=== PATIENT | male | born 1935 | race Caucasian/White ===

== ENCOUNTER → 2016-04-28 | Outpatient (CLI) | payer MEDICARE, BC | END | disposition home or self-care (01) | LOC: GMAL 11:16 | PROVIDERS: ATTEND Family Medicine | DX: D51.3 Other dietary vitamin B12 deficiency anemia (principal); E78.4 Other hyperlipidemia; E55.9 Vitamin D deficiency, unspecified | CPT/HCPCS: 82306; 82607; 84443; 87070; G0103 ==

== ENCOUNTER → 2016-05-04 | Outpatient (CLI) | payer MEDICARE, BC | LOC: GMAL 17:04 | PROVIDERS: ATTEND Family Medicine | DX: S51.012A Laceration without foreign body of left elbow, initial encounter (principal) ==

== ENCOUNTER → 2016-06-03 | Outpatient (CLI) | payer MEDICARE, BC | END | disposition home or self-care (01) | LOC: LAB.O 17:09 | PROVIDERS: ATTEND Internal Medicine Nephrology | DX: N18.3 Chronic kidney disease, stage 3 (moderate) (principal); E11.29 Type 2 diabetes mellitus with other diabetic kidney complication; I50.9 Heart failure, unspecified; E87.8 Other disorders of electrolyte and fluid balance, not elsewhere classified; D63.1 Anemia in chronic kidney disease; D50.9 Iron deficiency anemia, unspecified ==

== ENCOUNTER → 2016-09-24 | Outpatient (CLI) | payer MEDICARE, BC | END | disposition home or self-care (01) | LOC: LAB.O 09:53 | PROVIDERS: ATTEND Internal Medicine Nephrology | DX: N18.3 Chronic kidney disease, stage 3 (moderate) (principal); E11.9 Type 2 diabetes mellitus without complications ==

== ENCOUNTER → 2017-01-17 | Outpatient (CLI) | payer MEDICARE, BC | END | disposition home or self-care (01) | LOC: GMAL 14:12 | PROVIDERS: ATTEND Family Medicine | DX: I50.9 Heart failure, unspecified (principal); N39.0 Urinary tract infection, site not specified ==

== ENCOUNTER → 2017-01-17 | Outpatient (CLI) | payer MEDICARE, BC | END | disposition home or self-care (01) | LOC: GMAL 11:17 | PROVIDERS: ATTEND Family Medicine | DX: D51.3 Other dietary vitamin B12 deficiency anemia (principal); R53.82 Chronic fatigue, unspecified; E55.9 Vitamin D deficiency, unspecified | CPT/HCPCS: 82306; 82607; 83880; 84443; G0103 ==

== ENCOUNTER → 2017-01-19 | Outpatient (CLI) | payer MEDICARE, BC ==
--- NOTE | 2017-01-20 08:57 | US ---
EXAM DESCRIPTION: Abdomen,Limited CLINICAL HISTORY: 81 years, Male, CHRONIC KIDNEY DISEASE COMPARISON: None. FINDINGS: The right kidney measures 11.6 cm in length. There is a questionable tiny nonobstructing calculus inferior pole right kidney. No hydronephrosis. There is no right renal cortical thinning or perinephric fluid. The left kidney measures 11.8cm in length. There is no left-sided hydronephrosis or obstructing nephrolithiasis. There is no left renal cortical thinning or perinephric fluid. The bladder is unremarkable. No bladder wall thickening or mass. Needle ureteral jet was identified during this exam. Prevoid bladder volume 219 mL. The patient was unable to void, and post void bladder volume was not calculated. The prostate is not identified on this exam. The abdominal aorta and IVC are not well visualized on this exam. IMPRESSION: Questionable tiny nonobstructing right renal calculus, but no hydronephrosis, renal mass, bladder wall thickening or other apparent urinary tract abnormality. Patient was unable to void up to 30 minutes following the exam, and post void bladder volume was not calculated. Nonvisualization of the prostate. Electronically signed by: Lg Fink MD 01/20/2017 8:56 AM CDT
== END ==
LOC: US 09:47
PROVIDERS: ATTEND Family Medicine
DX: N18.9 Chronic kidney disease, unspecified (principal); N20.0 Calculus of kidney

== ENCOUNTER → 2017-02-07 | Outpatient (CLI) | payer MEDICARE, BC | END | disposition home or self-care (01) | LOC: LAB.O 09:50 | PROVIDERS: ATTEND Internal Medicine Nephrology | DX: E11.29 Type 2 diabetes mellitus with other diabetic kidney complication (principal); N18.3 Chronic kidney disease, stage 3 (moderate); R79.89 Other specified abnormal findings of blood chemistry; N25.81 Secondary hyperparathyroidism of renal origin; D63.1 Anemia in chronic kidney disease ==

== ENCOUNTER 2017-03-19 18:13 | Emergency (ER) | payer MEDICARE, BC ==
--- NOTE | 2017-03-19 19:15 | ED.PDOC ---
History of Present Illness - General Chief Complaint: Respiratory Problem Stated Complaint: cough,fever Time Seen by Provider: 03/19/17 19:10 Source: patient, RN notes reviewed, Vital Signs reviewed Additional Information: Pt states he thinks he has "a bad cold". Patient good with plan for chest x-ray and swab for flu. Reportedly patient had a fever to 102 recently along with cough and runny nose. Pt in no distress currently. He ambulates with a rolling walker and he denies any recent falls. He lives alone and reports a load builder that comes am and pm. - History of Present Illness Timing/Duration: other - within the past 24 hours Cough Quality/Degree: mild, dry cough Possible Cause: unknown cause Improving Factors: nothing Worsening Factors: nothing Associated Symptoms: cough, fever/chills, nasal congestion, nasal drainage Respiratory Risk Factors: no cause identified Allergies/Adverse Reactions: Allergies NO KNOWN ALLERGY Allergy (Verified 07/23/15 10:42) Home Medications: Ambulatory Orders Allopurinol [Zyloprim] 100 mg PO BID 07/23/15 Aspirin [Aspirin Adult Low Dose] 81 mg PO DAILY 07/23/15 Carvedilol [Coreg] 25 mg PO BID 07/23/15 Dabigatran Etexilate [Pradaxa] 75 mg PO BID 07/23/15 Furosemide [Lasix] 80 mg PO DAILY 07/23/15 Glimepiride [Amaryl] 4 mg PO BID 07/23/15 Pitavastatin Calcium [Livalo] 4 mg PO DAILY 07/23/15 Azithromycin [Zithromax Z-Josiah] 1 ea PO DAILY #1 pack 03/19/17 Oseltamivir Phosphate [Tamiflu] 75 mg PO BID 5 Days #10 cap 03/19/17 Review of Systems - Review of Systems Constitutional: States: see HPI, fever EENTM: States: see HPI, nose congestion Respiratory: States: see HPI, cough Cardiology: States: no symptoms reported Gastrointestinal/Abdominal: States: no symptoms reported Genitourinary: States: no symptoms reported Musculoskeletal: States: no symptoms reported Skin: States: no symptoms reported Neurological: States: no symptoms reported Endocrine: States: no symptoms reported Hematologic/Lymphatic: States: no symptoms reported Past Medical History (General) - Patient Medical History Hx Stroke: Yes Hx Dementia: No Hx Asthma: No Hx of COPD: No Hx Cardiac Disorders: Yes Hx Congestive Heart Failure: Yes Hx Pacemaker: Yes Hx Hypertension: Yes Hx Thyroid Disease: No Hx Diabetes: Yes Hx Cancer: Yes - Skin Hx MRSA: No Surgical History: pacemaker - Vaccination History Hx Tetanus, Diphtheria Vaccination: No - unknown Hx Influenza Vaccination: Yes Hx Pneumococcal Vaccination: Yes - Social History Hx Tobacco Use: No Family Medical History - Family History Father Family History: Unknown Living Status: Physical Exam - Physical Exam General Appearance: Alert, Comfortable, No apparent distress, Well Hydrated Eye Exam: bilateral normal ENT Exam: pharynx normal, nasal drainage - clear Neck: non-tender, full range of motion, supple Respiratory: no respiratory distress, no accessory muscle use Cardiovascular/Chest: regular rate, rhythm Gastrointestinal/Abdominal: soft Extremity: normal range of motion 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 Pt in no distress on exam. Will treat symptoms and ultimately flu and/or PNA based on results of testing. Suspect Patient will be able to be discharged home once work-up complete. 03/19/17 19:57 Flu positive and infiltrate on x-ray. Pt stable for d/c home. Will give first dose and provide Rx for Azithromycin and Tamiflu. - Results/Orders Results/Orders: Chest X-Ray Report: EXAM DESCRIPTION: Chest,2 Views CLINICAL HISTORY: cough, fever COMPARISON: 07/23/2015 FINDINGS: Two views of the chest are submitted. Cardiac silhouette appears stable. Electronic cardiac device and leads are again seen. Prosthetic valves are again seen.. There is consolidation in the posterior left lung. No acute bony abnormality. There is no significant pulmonary vascular engorgement. IMPRESSION: Left lung consolidation. Departure - Departure Clinical Impression: Influenza Pneumonia Qualifiers: Pneumonia type: due to unspecified organism Laterality: left Lung location: unspecified part of lung Qualified Code(s): J18.9 - Pneumonia, unspecified organism Time of Disposition: 20:20 Disposition: Discharge to Home or Self Care Condition: Fair Departure Forms: ED Discharge - Pt. Copy, Patient Portal Self Enrollment Instructions: DI for Pneumonia -- Adult, Influenza Referrals: Yao Ellis III, MD [Primary Care Provider] - 1-5 Days Prescriptions: Azithromycin [Zithromax Z-Josiah] 1 ea PO DAILY #1 pack Oseltamivir Phosphate [Tamiflu] 75 mg PO BID 5 Days #10 cap Home Medications: Ambulatory Orders Allopurinol [Zyloprim] 100 mg PO BID 07/23/15 Aspirin [Aspirin Adult Low Dose] 81 mg PO DAILY 07/23/15 Carvedilol [Coreg] 25 mg PO BID 07/23/15 Dabigatran Etexilate [Pradaxa] 75 mg PO BID 07/23/15 Furosemide [Lasix] 80 mg PO DAILY 07/23/15 Glimepiride [Amaryl] 4 mg PO BID 07/23/15 Pitavastatin Calcium [Livalo] 4 mg PO DAILY 07/23/15 Azithromycin [Zithromax Z-Josiah] 1 ea PO DAILY #1 pack 03/19/17 Oseltamivir Phosphate [Tamiflu] 75 mg PO BID 5 Days #10 cap 03/19/17 Additional Instructions: Take medicine as prescribed. Stay well hydrated. Use Tylenol over the counter 2 tablets every 6 hours as needed for fever/pain. Follow-up with Primary Care Provider if symptoms persist in 3 to 5 days or return to ER sooner if condition worsens.
--- NOTE | 2017-03-19 19:30 | RAD ---
EXAM DESCRIPTION: Chest,2 Views CLINICAL HISTORY: cough, fever COMPARISON: 07/23/2015 FINDINGS: Two views of the chest are submitted. Cardiac silhouette appears stable. Electronic cardiac device and leads are again seen. Prosthetic valves are again seen.. There is consolidation in the posterior left lung. No acute bony abnormality. There is no significant pulmonary vascular engorgement. IMPRESSION: Left lung consolidation. Electronically signed by: Jonny Jordan 03/19/2017 7:29 PM [facility]
[2017-03-19] MEDS ORDERED: AZITHROMYCIN 250 MG TAB PO ONE (19:47)
[2017-03-19] MEDS ORDERED: OSELTAMIVIR 75 MG CAP PO ONE (19:57)
[2017-03-19] MEDS ORDERED: ACETAMINOPHEN 500 MG TAB PO ONE (20:02)
[2017-03-19 20:05] VITALS: BP 137/62; TEMP 100.1; O2SAT 97
== END 2017-03-19 20:18 | disposition home or self-care (01) ==
LOC: ER 18:13
DX: J11.00 Influenza due to unidentified influenza virus with unspecified type of pneumonia (principal); I11.0 Hypertensive heart disease with heart failure; I50.9 Heart failure, unspecified; E11.9 Type 2 diabetes mellitus without complications; Z95.0 Presence of cardiac pacemaker; Z79.82 Long term (current) use of aspirin
CPT/HCPCS: 71020; 87502; Q0144

== ENCOUNTER → 2017-04-28 | Outpatient (CLI) | payer MEDICARE, BC ==
--- NOTE | 2017-04-29 15:19 | RAD ---
EXAM DESCRIPTION: Hand,Right 3 Views CLINICAL HISTORY: PAIN COMPARISON: None Available. TECHNIQUE: AP, LATERAL, AND OBLIQUE FINDINGS: Three views of the right hand demonstrate severe degenerative changes at the base of the thumb and index finger at the CMC joint. An ulnar fiberglass splint is in place with an oblique mildly comminuted fracture of the fifth metacarpal distally. Slight displacement is evident with slight foreshortening. Moderate volar angulation of the distal fragment is noted. Additional fractures of the carpal bones or proximal metacarpals involving the fourth or fifth finger are not apparent. IMPRESSION: 1. A comminuted oblique fracture of the fifth metacarpal shaft distally with foreshortening and some volar angulation. 2. Advanced severe degenerative changes at the base of the thumb and index finger at the CMC joint. Electronically signed by: Declan Vinson MD 04/29/2017 3:18 PM [facility] [place]
== END ==
LOC: RAD 07:50
PROVIDERS: ATTEND Orthopaedic Surgery
DX: S62.326A Displaced fracture of shaft of fifth metacarpal bone, right hand, initial encounter for closed fracture (principal)

== ENCOUNTER → 2017-05-19 | Outpatient (CLI) | payer MEDICARE, BC ==
--- NOTE | 2017-05-19 09:21 | RAD ---
RIGHT HAND HISTORY:2ND METACARPAL BONE FX COMPARISON:None FINDINGS: Three views of hand demonstrate anatomic bony alignment. Comminuted and mildly angulated fracture in the fifth metacarpal without fracture extending to the MCP joint. No other fracture is identified in remainder of right hand. Diffuse narrowing of IP and DIP joints and CMC joints, with partial ankylosis at the fourth IP joint. No soft tissue abnormality is identified. IMPRESSION: Comminuted and mildly angulated fracture in the fifth metacarpal. Degenerative changes consistent with osteoarthritis. There is partial ankylosis across the fourth IP joint Electronically signed by: Juan Morejon MD 05/19/2017 9:21 AM [facility]
== END ==
LOC: RAD 07:50
PROVIDERS: ATTEND Orthopaedic Surgery
DX: S62.300D Unspecified fracture of second metacarpal bone, right hand, subsequent encounter for fracture with routine healing (principal)

== ENCOUNTER → 2017-06-03 | Outpatient (CLI) | payer MEDICARE, BC ==
--- NOTE | 2017-06-03 14:41 | RAD ---
EXAM DESCRIPTION: Hand,Right 3 Views CLINICAL HISTORY: FX COMPARISON: None Available. TECHNIQUE: AP, LATERAL, AND OBLIQUE FINDINGS: Three-view right hand shows oblique mildly comminuted fracture of the mid to distal right fifth metacarpal. No change in alignment since previous study. No significant callus formation is seen. Fracture line extends laterally and proximal to the fifth metacarpal phalangeal joint. Mild degenerative narrowing of the joints of the fingers with advanced degenerative changes of the interphalangeal joint of the thumb. Moderate osteoarthritic degenerative changes of the lateral carpus. Fused PIP joint of the fourth finger is noted unchanged. IMPRESSION: Comminuted fracture of the mid to distal right fifth metacarpal without change in alignment since previous study. Electronically signed by: Jarad Calzada MD 06/03/2017 2:40 PM CDT
== END ==
LOC: RAD 10:45
PROVIDERS: ATTEND Orthopaedic Surgery
DX: S62.300D Unspecified fracture of second metacarpal bone, right hand, subsequent encounter for fracture with routine healing (principal)

== ENCOUNTER → 2017-07-05 | Outpatient (CLI) | payer MEDICARE, BC | LOC: LAB.NP 14:19 | PROVIDERS: ATTEND Internal Medicine Interventional Cardiology | DX: I50.20 Unspecified systolic (congestive) heart failure (principal) ==

== ENCOUNTER → 2017-07-11 | Outpatient (CLI) | payer MEDICARE, BC | LOC: LAB.O 13:46 | DX: E11.29 Type 2 diabetes mellitus with other diabetic kidney complication (principal); E11.21 Type 2 diabetes mellitus with diabetic nephropathy; D50.9 Iron deficiency anemia, unspecified; N18.4 Chronic kidney disease, stage 4 (severe); N25.81 Secondary hyperparathyroidism of renal origin; E78.5 Hyperlipidemia, unspecified; I10 Essential (primary) hypertension ==

== ENCOUNTER → 2017-08-03 | Outpatient (CLI) | payer MEDICARE, BC | LOC: BFHH 10:01 | PROVIDERS: ATTEND Family Medicine | DX: I11.0 Hypertensive heart disease with heart failure (principal); I12.9 Hypertensive chronic kidney disease with stage 1 through stage 4 chronic kidney disease, or unspecified chronic kidney disease; N18.9 Chronic kidney disease, unspecified; I50.9 Heart failure, unspecified ==

== ENCOUNTER → 2017-08-08 | Outpatient (CLI) | payer MEDICARE, BC | LOC: BFHH 16:05 | PROVIDERS: ATTEND Family Medicine | DX: N39.0 Urinary tract infection, site not specified (principal) ==

== ENCOUNTER → 2017-10-13 | Outpatient (CLI) | payer MEDICARE, BC | LOC: LAB.O 11:31 | PROVIDERS: ATTEND Internal Medicine Nephrology | DX: E11.29 Type 2 diabetes mellitus with other diabetic kidney complication (principal); N18.4 Chronic kidney disease, stage 4 (severe); I50.9 Heart failure, unspecified; N17.9 Acute kidney failure, unspecified; E78.2 Mixed hyperlipidemia; M10.9 Gout, unspecified; N25.81 Secondary hyperparathyroidism of renal origin; D63.1 Anemia in chronic kidney disease ==

== ENCOUNTER → 2018-02-01 | Outpatient (CLI) | payer MEDICARE, BC | LOC: LAB.O 10:53 | PROVIDERS: ATTEND Internal Medicine Nephrology | DX: E11.29 Type 2 diabetes mellitus with other diabetic kidney complication (principal); N18.4 Chronic kidney disease, stage 4 (severe); D63.1 Anemia in chronic kidney disease; N25.81 Secondary hyperparathyroidism of renal origin ==

== ENCOUNTER → 2018-03-08 | Outpatient (CLI) | payer MEDICARE, BC | LOC: LAB.O 09:03 | PROVIDERS: ATTEND Internal Medicine | DX: E11.21 Type 2 diabetes mellitus with diabetic nephropathy (principal); E11.40 Type 2 diabetes mellitus with diabetic neuropathy, unspecified; E78.5 Hyperlipidemia, unspecified; I10 Essential (primary) hypertension ==

== ENCOUNTER 2018-04-16 18:48 | Emergency (ER) | payer MEDICARE, BC ==
[2018-04-16] MEDS ORDERED: MIDAZOLAM INJ 5 MG/5 ML VIAL IV ONE ×2 (18:49→22:07)
[2018-04-16] MEDS ORDERED: ETOMIDATE INJECTION 2 MG/ML 20ML VIAL IV ONE (18:49)
[2018-04-16] MEDS ORDERED: FUROSEMIDE INJ 40 MG/4 ML VIAL ONE (18:53)
[2018-04-16] MEDS ORDERED: FUROSEMIDE INJ 40 MG/4 ML VIAL IV ONE (19:00)
[2018-04-16] MEDS ORDERED: SODIUM CHLORIDE 0.9% (FLUSH) 10 ML SYG IV PRN (19:08)
--- NOTE | 2018-04-16 19:11 | ED.PDOC ---
History of Present Illness - General Time Seen by Provider: 04/16/18 19:08 Source: RN notes reviewed, Vital Signs reviewed, EMS notes reviewed Additional Information: 82 YEAR OLD WHITE MALE BROUGHT FROM HIS HOME FOR EVALUATION OF ACUTE SHORTNESS OF BREATH WITH HYPOXIA REPORTED BY EMS HIS SP02 WAS IN THE 70S AT HOME HE WAS PLACED ON CPAP WITH IMPROVEMENT HE DENIES ANY CHEST PAIN HE IS AWAKE ALERT ANSWERS QUESTIONS HEAR RATE IN THE 70S HE HAS BILATERAL RALES HIS BREATHING IS LABORED HE HAS 2 + PEDAL EDEMA STERNAL SCAR NOTED HIS DAUGHTER WHO LIVES IN [place] REPORTS HE WAS IN HIS USUAL HEALTH THIS MORNING SO THIS RESPIRATORY DISTRESS IS OF FEW HOURS ONSET AND DURATION - History of Present Illness Timing/Duration: 4-6 hours Severity: moderate Worsening Factors: movement Associated Symptoms: shortness of breath, weakness Allergies/Adverse Reactions: Allergies NO KNOWN ALLERGY Allergy (Verified 07/23/15 10:42) Home Medications: Ambulatory Orders Allopurinol [Zyloprim] 100 mg PO BID 07/23/15 Aspirin [Aspirin Adult Low Dose] 81 mg PO DAILY 07/23/15 Carvedilol [Coreg] 25 mg PO BID 07/23/15 Dabigatran Etexilate [Pradaxa] 75 mg PO BID 07/23/15 Furosemide [Lasix] 80 mg PO DAILY 07/23/15 Glimepiride [Amaryl] 4 mg PO BID 07/23/15 Pitavastatin Calcium [Livalo] 4 mg PO DAILY 07/23/15 Azithromycin [Zithromax Z-Josiah] 1 ea PO DAILY #1 pack 03/19/17 Oseltamivir Phosphate [Tamiflu] 75 mg PO BID 5 Days #10 cap 03/19/17 Review of Systems - Review of Systems Constitutional: States: no symptoms reported EENTM: States: no symptoms reported Respiratory: States: see HPI Cardiology: States: no symptoms reported Gastrointestinal/Abdominal: States: no symptoms reported Genitourinary: States: no symptoms reported Musculoskeletal: States: no symptoms reported Skin: States: no symptoms reported Neurological: States: no symptoms reported Endocrine: States: no symptoms reported Hematologic/Lymphatic: States: no symptoms reported Past Medical History (General) - Patient Medical History Hx Stroke: Yes Hx Dementia: No Hx Asthma: No Hx of COPD: No Hx Cardiac Disorders: Yes Hx Congestive Heart Failure: Yes Hx Pacemaker: Yes Hx Hypertension: Yes Hx Thyroid Disease: No Hx Diabetes: Yes Hx Cancer: Yes - Skin Hx MRSA: No - Vaccination History Hx Tetanus, Diphtheria Vaccination: No - unknown Hx Influenza Vaccination: Yes Hx Pneumococcal Vaccination: Yes - Social History Hx Tobacco Use: No Family Medical History - Family History Father Family History: Unknown Living Status: Physical Exam - Physical Exam General Appearance: Obvious distress, Restless Eye Exam: bilateral normal Ears, Nose, Throat: hearing grossly normal, normal ENT inspection, normal pharynx Neck: non-tender, full range of motion, supple Respiratory: respiratory distress, decreased breath sounds, accessory muscle use, crackles, rales, rhonchi, wheezing Cardiovascular/Chest: regular rate, rhythm, no murmur Peripheral Pulses: radial,right: 2+, radial,left: 2+, femoral,right: 2+, femoral,left: 2+ Gastrointestinal/Abdominal: normal bowel sounds, non tender, soft, no organomegaly Back Exam: normal inspection, no CVA tenderness, no vertebral tenderness Extremity: normal range of motion, non-tender, normal inspection, swelling 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, no motor/sensory deficits, alert, normal mood/affect, oriented x 3 Progress - Results/Orders Results/Orders: Laboratory Tests 04/16/18 04/16/18 04/16/18 19:00 19:30 19:30 WBC 9.1 RBC 3.66 L Hgb 12.2 L Hct 37.7 L MCV 103.0 H MCH 33.3 H MCHC 32.4 L RDW 17.7 H Plt Count 178 MPV 7.9 Absolute Neuts (auto) 7.60 H Absolute Lymphs (auto) 0.80 L Absolute Monos (auto) 0.50 Absolute Eos (auto) 0.10 Absolute Basos (auto) 0.10 Neutrophils % 83.4 H Lymphocytes % 8.6 L Monocytes % 5.2 Eosinophils % 1.6 Basophils % 1.2 PT 11.0 H INR 1.10 PTT (SP) 24.1 pCO2 45 pO2 75 L HCO3 19.5 ABG pH 7.260 L* ABG O2 Saturation 95.4 ABG Base Excess -6.8 ABG Deoxyhemoglobin 4.5 Oxyhemoglobin % 92.7 L Carboxyhemoglobin % 0.9 Methemoglobin % Sat 1.9 H Calc Total Hemoglobin 11.0 L Sodium 141 Potassium 4.0 Chloride 109 Carbon Dioxide 22 Anion Gap 14.0 BUN 39 H Creatinine 2.84 H BUN/Creatinine Ratio 13.7 Random Glucose 238 H Serum Osmolality 298.4 H Lactic Acid 1.8 Calcium 8.3 L Magnesium 2.2 Total Bilirubin 1.8 H Direct Bilirubin 0.4 H Indirect Bilirubin 1.4 H AST 16 ALT 16 Alkaline Phosphatase 61 Creatine Kinase 71 CK-MB (CK-2) 7.0 H* CK-MB (CK-2) % Not Reportable Troponin I 0.03 B-Natriuretic Peptide 188.0 H Serum Total Protein 6.6 Albumin 3.4 Urine Color Urine Appearance Urine pH Ur Specific [place] Urine Protein Urine Glucose (UA) Urine Ketones Urine Blood Urine Nitrite Urine Bilirubin Urine Urobilinogen Ur Leukocyte Esterase Urine RBC Urine WBC Ur Epithelial Cells Urine Bacteria Hyaline Casts 04/16/18 20:30 WBC RBC Hgb Hct MCV MCH MCHC RDW Plt Count MPV Absolute Neuts (auto) Absolute Lymphs (auto) Absolute Monos (auto) Absolute Eos (auto) Absolute Basos (auto) Neutrophils % Lymphocytes % Monocytes % Eosinophils % Basophils % PT INR PTT (SP) pCO2 pO2 HCO3 ABG pH ABG O2 Saturation ABG Base Excess ABG Deoxyhemoglobin Oxyhemoglobin % Carboxyhemoglobin % Methemoglobin % Sat Calc Total Hemoglobin Sodium Potassium Chloride Carbon Dioxide Anion Gap BUN Creatinine BUN/Creatinine Ratio Random Glucose Serum Osmolality Lactic Acid Calcium Magnesium Total Bilirubin Direct Bilirubin Indirect Bilirubin AST ALT Alkaline Phosphatase Creatine Kinase CK-MB (CK-2) CK-MB (CK-2) % Troponin I B-Natriuretic Peptide Serum Total Protein Albumin Urine Color Yellow Urine Appearance Clear Urine pH 6.0 Ur Specific [place] 1.015 Urine Protein 100 H Urine Glucose (UA) Negative Urine Ketones Negative Urine Blood Small H Urine Nitrite Negative Urine Bilirubin Negative Urine Urobilinogen 0.2 Ur Leukocyte Esterase Negative Urine RBC 1-3 Urine WBC 0 Ur Epithelial Cells 0 Urine Bacteria Rare Hyaline Casts 1-3 Departure - Departure Clinical Impression: Respiratory failure, Pneumonia, Chronic kidney disease, Hx of CABG, Atrial fibrillation Time of Disposition: 21:39 Disposition: Discharge to Home or Self Care Condition: Poor Referrals: Yao Ellis III, MD [Primary Care Provider] - 1-2 Weeks Home Medications: Ambulatory Orders Allopurinol [Zyloprim] 100 mg PO BID 07/23/15 Aspirin [Aspirin Adult Low Dose] 81 mg PO DAILY 07/23/15 Carvedilol [Coreg] 25 mg PO BID 07/23/15 Dabigatran Etexilate [Pradaxa] 75 mg PO BID 07/23/15 Furosemide [Lasix] 80 mg PO DAILY 07/23/15 Glimepiride [Amaryl] 4 mg PO BID 07/23/15 Pitavastatin Calcium [Livalo] 4 mg PO DAILY 07/23/15 Azithromycin [Zithromax Z-Josiah] 1 ea PO DAILY #1 pack 03/19/17 Oseltamivir Phosphate [Tamiflu] 75 mg PO BID 5 Days #10 cap 03/19/17 Critical Care Note - Critical Care Note Total Time (mins): 120 - PT STATUS WAS NOT STABLE HE WAS HYPOXIC NAUSEATED INCREASED WORK OF BREATHING WAS UNABLE TO TOLERATE BIPAP THEREFORE INTUBATED WITH 7.5 FR ETT USING RSI ETOMIDATE 20 MG AND SUCCS 100 MG FOR SEDATION AND PARALYTIC RESPECTIVELY POST INTUBATION IT TOOK SOMETIME TO GET HIS SATS UP HE HAD BRONCHOSPASM NG WAS PLACED STARTED ON VERSED Transfer to Outside Facility - Transfer Information Accepting Provider:: DR SANTORO Accepting Facility: [facility] Reason for Transfer: ICU
--- NOTE | 2018-04-16 19:44 | RAD ---
EXAM DESCRIPTION: Chest,1 View CLINICAL HISTORY: 82 years Male hypoxic, COMPARISON: 03/19/2017 FINDINGS: Heart size is stable. Median sternotomy wires and postsurgical changes with left atrial appendage closer device are noted. There is increased density in the retrocardiac region which could reflect atelectasis or infiltrate. No central pulmonary vascular congestion or evidence of edema. No definite pleural fluid is noted. Small amount of atelectasis or infiltrate in the medial right lung base IMPRESSION: Increased density in the retrocardiac region on the left which could reflect atelectasis or developing infiltrate Small amount of atelectasis or infiltrate in the medial right lung base Stable cardiac size Electronically signed by: Alba James MD 04/16/2018 7:43 PM DENTAL HYGIENE PROFESSOR
[2018-04-16] MEDS ORDERED: ONDANSETRON INJ 4 MG/2 ML VIAL ONE (20:21)
[2018-04-16] MEDS ORDERED: CEFEPIME 1 GM in SODIUM CHLORIDE 0.9% 50ML 50 ML IVPB ONE (20:21)
[2018-04-16] MEDS ORDERED: ONDANSETRON INJ 4 MG/2 ML VIAL IV ONE (20:22)
[2018-04-16] MEDS ORDERED: SUCCINYLCHOLINE CHLORIDE 200 MG/10 ML VIAL ONE (20:28)
[2018-04-16] MEDS ORDERED: SODIUM CHLORIDE 0.9% 1000ML 1,000 ML ONE (20:32)
[2018-04-16] MEDS ORDERED: MIDAZOLAM INJ 25 MG in SODIUM CHLORIDE 0.9% 50ML 25 ML IVPB ONE (20:50)
[2018-04-16] MEDS ORDERED: SODIUM CHLORIDE 0.9% 50ML 50 ML ONE ×2 (20:51→20:52)
[2018-04-16] MEDS ORDERED: CEFEPIME 2 GM VIAL ONE (20:51)
[2018-04-16] MEDS ORDERED: MIDAZOLAM INJ 5 MG/5 ML VIAL ONE (20:52)
[2018-04-16] MEDS ORDERED: IPRATROPIUM/ALBUTEROL 3 ML VIAL NEB ONE (21:00)
--- NOTE | 2018-04-16 21:22 | RAD ---
EXAM DESCRIPTION: Chest,1 View CLINICAL HISTORY: post tube insertion COMPARISON: None FINDINGS: There is an endotracheal tube with the tip ending approximately 7 cm above the level of the valerie. Patient is status post median sternotomy and heart valve surgery. Pacer leads project over the heart. Perihilar opacities could be secondary to pulmonary edema. There is no pneumothorax. Blunted left costophrenic angle could represent pleural fluid. IMPRESSION: Tip of the endotracheal tube ends approximately 7 cm above the level of the valerie. Perihilar opacities could be secondary to pulmonary edema. Recommend follow-up. Electronically signed by: Ousmane Maya MD 04/16/2018 9:21 PM PROFESSOR OF CHEMISTRY
[2018-04-16] MEDS ORDERED: SODIUM CHLORIDE 0.9% 1000ML 1,000 ML IVS PRN (22:16)
[2018-04-16 22:17] VITALS: BP 134/69; TEMP 99; O2SAT 91
== END 2018-04-16 22:45 | disposition short-term general hospital (02) ==
LOC: ER 18:48
DX: J96.91 Respiratory failure, unspecified with hypoxia (principal); J18.9 Pneumonia, unspecified organism; I48.91 Unspecified atrial fibrillation; N18.9 Chronic kidney disease, unspecified; I50.9 Heart failure, unspecified; E11.22 Type 2 diabetes mellitus with diabetic chronic kidney disease; I13.2 Hypertensive heart and chronic kidney disease with heart failure and with stage 5 chronic kidney disease, or end stage renal disease; Z95.1 Presence of aortocoronary bypass graft; Z95.0 Presence of cardiac pacemaker; Z86.73 Personal history of transient ischemic attack (TIA), and cerebral infarction without residual deficits; Z85.828 Personal history of other malignant neoplasm of skin; Z79.899 Other long term (current) drug therapy; Z79.82 Long term (current) use of aspirin
CPT/HCPCS: 31500; 36415; 36600; 71045; 80048; 80076; 81001; 82550; 82553; 82803; 82805; 83605; 83880; 84484; 85025; 85610; 85730; 87040; 93005; 94002; 94660; 94760; 94770; A4216; J0330; J0692; J1940; J2250; J2405; J7030; J7620